=== PATIENT | male | born 1985 | race Caucasian/White ===

== ENCOUNTER 2024-07-19 21:14 | Inpatient (IN) | payer BC, SELFPAY ==
[2024-07-19 17:09] VITALS: BP 164/89
--- NOTE | 2024-07-19 17:28 | ED.GENMED ---
History of Present Illness
General
Chief Complaint: Crisis Evaluation
Source: patient
Exam Limitations: none
Time Seen by Provider: 07/19/24 17:28
Nursing documentation reviewed up to this point in time: agreed with
History of Present Illness
History of Present Illness:
The patient is a 38-year-old man with a past medical history of anxiety, depression and past suicidal attempts who comes in with feelings of hurting himself. Additionally, patient reports that he drinks alcohol every day and is experiencing nausea
and shakiness. Patient feels panicked. Patient reports he drank 2 cans of beer this morning. Patient denies history of withdrawal seizures but states that he has been experiencing visual hallucinations recently. Patient reports that his brother
recently from cancer few days ago. Patient denies headache, weakness and numbness. He denies fever and rash.
Past History
Past History
ED Past Medical History: Psychiatric and Other (ADHD)
ED Past Surgical History: Other (Hernia repair)
Social History
Tobacco: Smoker
Alcohol: Chronic alcoholic
Drug: Marijuana
Personal: Single
Living: with family
Employment: Other
Family History
Family History: Other
Review of Systems
Review of Systems
Allergies reviewed?: Yes
All Other Systems: ROS reviewed and negative except as documented in HPI and ROS
Constitutional: Reports sleep disturbance
EENT: Reports no symptoms
Respiratory: Reports no symptoms
Cardiac: Reports palpitations
ABD/GI: Reports nausea and anorexia
: Reports no symptoms
Musculoskeletal: Reports no symptoms
Skin: Reports no symptoms
Neurological: Reports no symptoms
Endocrine: Reports no symptoms
Hematologic/Lymphatic: Reports no symptoms
Psychiatric: Reports depression, anxiety, suicidal and hallucinations
Phy Exam
Physical Exam
Physical Exam:
Physical Exam
General: Patient appears flushed and anxious. Tremorous
Neck: supple. no meningeal signs. normal psoterior pharynx
Heart: Tachycardic
Lungs: no acute respiratory distress. clear bilaterally
Abdomen: normal bowel sounds. not tender. no CVAT
Neuro: alert and oriented. no focal neurological deficits
Skin: no rash
Psychiatric: well kept. interactive and cooperative
Extremities: no edema. no calf tenderness. negative homans. good distal pulses
Course
Orders/Labs/Results
Orders:
Orders
07/19/24 16:53
1:1 Observation - Suicide/ Violent Behavior As Directed
Crisis Consult Urgent
Reason for Consult: SI
07/19/24 18:14
Acetaminophen Urgent
Alcohol Urgent
Complete Blood Count/With Diff Urgent
Comprehensive Metabolic Panel Urgent
Fentanyl, Urine Urgent
Lipase Urgent
Urine Drug Abuse Screen Urgent
Date Specimen was Collected: 07/19/24
Time Specimen was Collected: 17:18
07/19/24 19:09
Lorazepam [Ativan] 1 mg IV NOW STA
07/19/24 19:10
Ondansetron Injectable [Zofran] 4 mg IV NOW STA
07/19/24 20:00
0.9% Sodium Chloride 1000 ml [Nss] 1,000 ml Mvi, Adult [Multivitamin] 10 ml Thiamine Injection 100 mg IV Wide Open mls/hr
07/19/24 20:04
Admit/Transfer Patient As Directed
Co-Sign Provider:
Level of Care: Inpatient admission
Assign to:: IMU- Intermediate Care
Physician / Group: elina shaffer
Diagnosis: etoh withdrawal/ delerium tremens
Reason for Hospitalization: etoh withdrawal/ delerium tremens
Expected length of stay greater than two midnights?: Yes
ELOS- Estimated Length of Stay in days: 5
I certify the patient meets the requirements for IP care: Yes
Code Status As Directed
Resuscitation Status: Full Code
07/19/24 20:07
PRN Pain Medication Management As Directed
May give lesser potent ordered pain med per pt: Yes
preference::
Protocol:: Medication orders for pain may be administered in a
manner that supports deferring to patient preference
when the pt is:
- Requesting an ordered lesser potent pain medication.
Least to most potent pain medications are defined
as: acetaminophen < NSAID < tramadol < opioids
(morphine, oxycodone, hydromorphone).
- Requesting a lesser dose of the same medication IF
ORDERED.
- Requesting a less intrusive route of administration
if both routes are prescribed by the provider (PO <
IV).
07/19/24 20:10
Nicotine [Nicoderm Transdermal] 21 mg TRANSDERM DAILY
Abnormal Lab Results
07/19/24
18:14
MCH 31.1 H pg
(27.0-31.0)
Immature Gran % 0.6 H %
(0-0.5)
Glucose 111 H mg/dl
(70-99)
AST 81 H U/L
(17-59)
ALT 116 H U/L
(0-50)
Acetaminophen < 10 L ug/ml
(10-30)
Ur Amphetamines Screen Positive H
(Negative)
U Marijuana (THC) Screen Positive H
(Negative)
07/19/24 18:14
07/19/24 18:14
Vital Signs
Initial and Last Documented VS:
Initial Vital Signs
Temp Pulse Resp BP Pulse Ox
98.4 F 107 16 164/89 98
07/19/24 17:09 07/19/24 17:09 07/19/24 17:09 07/19/24 17:09 07/19/24 17:09
Last Documented Vital Signs
Temp Pulse Resp BP Pulse Ox
98.4 F 97 20 144/96 98
07/19/24 17:09 07/19/24 19:59 07/19/24 19:59 07/19/24 19:59 07/19/24 19:59
MDM/Problems Addressed
Differential Diagnosis Includes:
Acute alcohol withdrawal, panic disorder, suicidal ideations
MDM/Problems Addressed:
Patient presents with acute suicide ideations, anxiety and tremor
Chronic conditions affecting care:
Chronic alcohol use
Chronic conditions affecting care: Psychiatric illness
Acute Exacerbation and/or Progression of Chronic Illness:
Patient may have acute exacerbation of alcohol withdrawal
*Pulse Oximetry
Patient hypoxic: no
*Critical Care Note
Total Time (30-74mins, 75-104mins- exclusive of procedures): Not Applicable
ED Attending Note
-
Portions of this chart may have been created with voice recognition software.� Occasional wrong word or��sound alike� substitutions may have occurred due to the inherent limitations of voice recognition software.
Discharge Plan
Departure
Patient Disposition: Admit
Date of Disposition: 07/19/24
Time of Disposition: 19:09
Admit to: Telemetry
Presentation/result/management discussed w/ accepting MD/DO: Hospitalist
Condition: Fair
Discharge Problem:
Alcohol withdrawal, Depression with suicidal ideation
Prescriptions:
No Action
Adderall
30 mg PO PRN PRN (Reason: to focus)
Patient Comments:
takes 5 mg at at time
Referrals:
UNKNOWN - PT DOES,NOT KNOW [Family Provider] -
Interventions
Interventions:
*Risk Screen - Suicide Last Done: 07/19/24 16:52
*General Assessment Last Done: 07/19/24 17:09
ED- Fall Risk Assessment Last Done: 07/19/24 18:15
*ED COVID-19 Vaccine History Last Done: 07/19/24 18:15
ED-Psychological Assessment Last Done: 07/19/24 18:15
Discharge Date and Time
Print Language: LITHUANIAN
[2024-07-19 18:15] VITALS: BMI 27.1
[2024-07-19 18:26] LABS: % Eosinophils 2.5 % (0-6); % Immature Granulocytes 0.6 % (0-0.5); % Lymphocytes 30.2 % (20.5-51.1); % Monocytes 6.4 % (1.7-9.3); % Neutrophils 59.3 % (42.2-75.2); Absolute Basophils 0.1 10^3/uL (0-0.2); Absolute Eosinophils 0.1 10^3/uL (0-0.7); Absolute Lymphocytes 1.5 10^3/uL (1.2-3.4); Absolute Monocytes 0.3 10^3/uL (0.1-0.6); Absolute Neutrophils 2.9 10^3/uL (1.4-6.5); Mean Corp Hgb Conc. 35.6 g/dL (33.0-37.0); Mean Corpuscular Hgb 31.1 pg (27.0-31.0); Mean Corpuscular Volume 87.4 fL (80.0-94.0); Mean Platelet Volume 8.9 fL (7.4-10.4); Nucleated Red Blood Cells % 0 % (-); Platelet Count 211 10^3/uL (130-400); Red Blood Cell Count 5.15 10^6/uL (4.70-6.10); Red Cell Dist. Width 12.5 % (11.5-14.5); White Blood Cell Count 4.8 10^3/uL (4.8-10.8)
[2024-07-19 18:38] LABS: Amphetamines Positive (Negative)
[2024-07-19 18:39] LABS: Barbiturates Negative (Negative); Benzodiazepines Negative (Negative); Buprenorphine Negative (Negative); Cocaine Negative (Negative); Marijuana Positive (Negative); Methadone Negative (Negative); Methamphetamines Negative (Negative); Opiates Negative (Negative); Phencyclidine Negative (Negative); Tricyclic Antidepressants Negative (Negative)
[2024-07-19 18:45] LABS: ALT (SGPT) 116 U/L (0-50); AST (SGOT) 81 U/L (17-59); Acetaminophen < 10 ug/ml (10-30); Albumin 4.7 g/dl (3.5-5.0); Alcohol 145 mg/dl; Alkaline Phosphatase 62 U/L (38-126); Blood Urea Nitrogen 19 mg/dl (9-20); Calcium 9.2 mg/dl (8.4-10.2); Carbon Dioxide 27 mmol/L (22-30); Chloride 100 mmol/L (98-107); Estimated Creatinine Clearance > 125 ml/min; Glucose 111 mg/dl (70-99); Lipase 169 U/L (23-300); Sodium 137 mmol/L (135-145); Total Bilirubin 0.8 mg/dl (0.2-1.3); Total Protein 7.7 g/dl (6.3-8.2); eGFR > 60.00
[2024-07-19 18:50] LABS: Potassium 4.5 mmol/L (3.5-5.1)
[2024-07-19 19:05] LABS: Fentanyl, Urine Negative (Negative)
--- NOTE | 2024-07-19 19:30 | HPS.HSE ---
Family Physician
-
Family Physician: NOT KNOW UNKNOWN - PT DOES
Chief Complaint
-
Suicidal, tremors, alcohol abuse
History of Present Illness
38-year-old male complaining of anxiety and depression along with suicidal thoughts of hurting himself. He reports that his brother from cancer a few days ago. He states he drinks heavily every day 1.5 L of vodka for the past 6 weeks
then prior 750 mL of vodka for the past 20 years. He reports his brother a few days ago he then started decreasing his alcohol intake and went down to 6 beers a day approximately 3 days ago. He states he had only had 2 cans of beer
this a.m. and is experiencing nausea with tremors along with visual hallucinations seeing colors. He feels very anxious and feels suicidal/unsafe at home. His girlfriend with whom he lives with is present with him. He states his friend gave him
BuSpar 2.5 mg of which he has had over the last 1-1/2 days. He denies fever, chills, rash, headache, chest pain, palpitations, shortness breath, cough, abdominal pain, nausea, vomiting, diarrhea, urinary symptoms. His past medical history of
alcoholism, active smoker, marijuana use, ADHD
Medical History
Past Medical History
Past Medical History: Reports Other
Additional Past Medical History:
alcoholism
active smoker
marijuana use,
ADHD
Past Surgical History: Reports Other
Additional Past Surgical History:
Hernia repair
Social History
Tobacco: Smoker (1 to 2 pack/day)
Alcohol: Daily (1.5 L/day recently 6 beers a day over the past 2 to 3 days)
Drug: Marijuana (Smokes 1 joint daily)
Personal: Single (Has girlfriend at bedside)
Living: With Family (Girlfriend)
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
Family History
Family History: Other (Brother cancer)
Allergies / Home Medications
Allergies reflects when Allergies were last updated in [employer].
Home Medications with original date entered in [employer]
Allergy/Medication List:
Allergies
Allergy/AdvReac Type Severity Reaction Status Date / Time
vancomycin Allergy Anaphylaxis Verified 07/19/24 17:16
Home Medications
Adderall 30 mg PO PRN PRN to focus 07/19/24
Review of Systems
-
History Source: Patient and Family (Girlfriend present in room)
A 12 point ROS was completed and negative except as noted: Yes
Constitutional: Reports Other (Anxious); Denies Fever, Fatigue or Chills
EENT: Reports Other (Difficulty maintaining eye contact when talking); Denies Sore Throat or Runny Nose
Respiratory: Denies Cough or Trouble Breathing
Cardiac: Denies Chest Pain, Diaphoresis, Palpitations or Syncope
Abdomen/GI: Denies Abdominal Pain, Nausea, Vomiting, Diarrhea, Constipated, Bloody Stools or Black Stools
: Denies Dysuria, Frequency, Flank Pain, Incontinence, Difficulty Voiding or Urgency
Musculoskeletal: Denies Joint Pain or Edema
Skin: Denies Itching or Rash
Neurological: Denies Dizzy, Headache or Weakness
Endocrine: Reports No Symptoms
Hematologic/Lymphatic: Reports No Symptoms
Psych: Reports Anxiety, Suicidal and Audio or Visual Hallucinations (Seeing colors)
Physical Exam
Vital Signs
Vital Signs
Temp Pulse Resp BP Pulse Ox
98.4 F 107 16 164/89 98
07/19/24 17:09 07/19/24 17:09 07/19/24 17:09 07/19/24 17:09 07/19/24 17:09
Physical Exam
General: Conversant (But difficulty maintaining eye contact); No Pain, Fever or Chills
HEENT: NormoCephalic, Anicteric, Moist mucous membranes, PERRLA, [place] Conjunctivae and No Ptosis
Respiratory: Clear; No Wheezes, Rales or Rhonchi
Cardiac: S1/S2 and Regular Rhythm; No Murmur, Rub, Gallop or Peripheral Edema
GI: Soft, Non Tender, Non Distended, Normal Bowel Sounds and No Hepatosplenomegaly
Rectal: Deferred by Provider
Genito-urinary: Deferred by me
Musculoskeletal: No Clubbing, No Cyanosis and No Edema
Skin: Warm and Dry; No Rash or Jaundice
Neuro: AO x 3, No Motor Deficits, Cranial Nerves Intact, No Sensory Deficits, Tremors (Hands) and Other (Anxious difficulty maintaining eye contact); No Slurred Speech, Facial Droop or Sedated
Psych: Agitated and Suicidal (Feels unsafe at home, lives with girlfriend who is currently in the room)
Laboratory Results
-
07/19/24 18:14
07/19/24 18:14
Laboratory Results
Total Bilirubin 0.8 mg/dl (0.2-1.3) 07/19/24 18:14
AST 81 U/L (17-59) H 07/19/24 18:14
ALT 116 U/L (0-50) H 07/19/24 18:14
Alkaline Phosphatase 62 U/L (38-126) 07/19/24 18:14
Lipase 169 U/L (23-300) 07/19/24 18:14
Data Reviewed
-
Lab Data: Labs Reviewed by me
Impression/Plan
-
Impression/plan:
Admit to IMU
Alcohol abuse with delirium tremens
Reports hallucinations, current tremors
Last drink 2 beers this a.m., EtOH 145
UDS positive for marijuana, amphetamines
-MSAs screen with protocol
-IV thiamine, IV folate
-Phenobarb taper
-Banana bag given in ER
-IV NSS 100 cc/h
Follow CBC, CMP
#Suicidal ideation
#Past history suicide with suicidal attempts
-Consult crisis
-One-to-one observation
#Transaminitis likely secondary to Alcohol abuse
AST 81, ALT 116, alk phos 62
-No prior IV drug use, history of tattoos entire body
#Nicotine abuse
#Marijuana use
-Smokes 1 to 2 pack/day and 1 joint daily
-Nicotine patch 21 mg
DVT prophylaxis
Subcu Lovenox
Full code
--- NOTE | 2024-07-19 19:38 | W.PN.UPDATE ---
Update Note
Progress Note Update
This note serves as an addendum to the H&P by manager battery LIZZETH Padmini GLEZ
HPI
38M HX anxiety, depression, ADHD and past suicidal attempts seen at ER
- pw feelings of hurting himself.
- he aslo reports that he drinks alcohol every day and is experiencing nausea and shakiness.
- feeling panicked.
- last ETOH: drank 2 cans of beer this morning.
- report experiencing visual hallucinations recently.
- social stressor: Brother recently from cancer few days ago
ROS:
- denies history of withdrawal seizures
- denies headache, weakness and numbness.
- denies fever and rash.
Reviewed VS: tachycardic Hypertensive 165/90
PE
Gen: flushed face, anxious and tremulous
HEENT: anicteric
Neck:
Lungs: clear bilaterally
Cor: tachycardic
Abdomen: soft , NT, NG, NRT
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 no focal neurological deficits
MS: no edema
Psych: well kept. interactive and cooperative
Laboratory Tests
07/19/24
18:14
WBC 4.8
Creatinine 0.8
eGFR > 60.00
AST 81 H
ALT 116 H
Lipase 169
Ur Amphetamines Screen Positive H
U Marijuana (THC) Screen Positive H
ASSESSMENT & PLAN
Suicidal ideation; feeling of hurting himself
Prior HX attempted suicide
HX HX anxiety, depression, ADHD
- agree wit 1 to 1
- Crisis consult
Hi risk for evolving acute ETOH WDS
POS autonomic hyperarousal signs ( tremors, tachycardia and hypetensive )
- last ETOH; this morning , 2 beers
- start on Phenobarb protocol
- Thiamine and Folate
- Psych consult
Suspect acute ETOH hepatitis
- trend LFts
- IVF
POS UDS for THC and Amphetamines
DVT Px: SQH
Full code
IMU
[2024-07-19] MEDS: MULTIVITAMIN 1011 MG IV (19:54)
[2024-07-19] MEDS: ZOFRAN 4 MG IV (19:54)
[2024-07-19] MEDS: MULTIVITAMIN 1011 ML IV (19:54)
[2024-07-19] MEDS: ATIVAN 1 MG IV (19:54)
[2024-07-19 19:59] VITALS: BP 144/96
[2024-07-19 22:00] VITALS: BP 143/96
[2024-07-19] MEDS: NICODERM TRANSDERMAL 21 MG TRANSDERM (22:00)
[2024-07-20] VITALS (16 sets, daily range): BP systolic 96–155; BP diastolic 42–109; BMI 27.5
[2024-07-20] MEDS: ATIVAN 1 MG IV ×2 (00:25→10:11)
[2024-07-20] MEDS: NSS (PRESERVATIVE FREE) 0.5 ML IV (00:25)
[2024-07-20 01:06] LABS: INR 0.98; PT 13.3 Sec (11.4-14.6)
[2024-07-20 01:07] LABS: APTT 28.4 Sec (23.4-35.0)
[2024-07-20 01:10] LABS: GGTP 287 U/L (15-73); Magnesium 1.9 mg/dl (1.6-2.3); Phosphorus 4.1 mg/dl (2.5-4.5)
[2024-07-20 01:18] LABS: B-Hydroxybutyrate 0.08 mmol/L (0.02-0.27)
[2024-07-20] MEDS: THIAMINE INJECTION 200 MG IV ×4 (01:23→23:18)
[2024-07-20] MEDS: NSS 1000 IV ×3 (01:24→18:54)
[2024-07-20] MEDS: PHENOBARBITAL 104 MG IV (01:25)
--- NOTE | 2024-07-20 01:40 | PTCARENOTE ---
Patient received in room 3362 from ED via stretcher. The patient transferred himself to the ICU bed. AAOX3. Patient is calm, pleasant, with flat affect at this time. Plan of care for the shift and unit orientation reviewed with the patient. Sinus
rhythm on the monitor with HR in the 80s. Coarse breath sounds. SpO2 at 95% on room air. Pt has a wet occasional cough. +BS. Declines need to void at this time. The patient verbalized weight loss and difficulty eating as of late. Pt has a linear 4
inch length healing cut on his left forearm. Pt stated that he fell a few days ago and must have cut himself. Labs drawn and sent. Scheduled medication administered. 1:1 suicide observation continued. Call brian is within reach.
[2024-07-20 04:19] LABS: % Basophils 1.1 % (0-2); % Eosinophils 2.4 % (0-6); % Immature Granulocytes 0.4 % (0-0.5); % Lymphocytes 32.9 % (20.5-51.1); % Monocytes 9.8 % (1.7-9.3); % Neutrophils 53.4 % (42.2-75.2); Absolute Basophils 0.1 10^3/uL (0-0.2); Absolute Eosinophils 0.1 10^3/uL (0-0.7); Absolute Lymphocytes 1.5 10^3/uL (1.2-3.4); Absolute Monocytes 0.4 10^3/uL (0.1-0.6); Absolute Neutrophils 2.4 10^3/uL (1.4-6.5); Hematocrit 42.3 % (39.0-52.0); Hemoglobin 14.9 g/dL (13.0-18.0); Mean Corp Hgb Conc. 35.2 g/dL (33.0-37.0); Mean Corpuscular Volume 87.9 fL (80.0-94.0); Mean Platelet Volume 9.8 fL (7.4-10.4); Nucleated Red Blood Cells % 0 % (-); Platelet Count 211 10^3/uL (130-400); Red Blood Cell Count 4.81 10^6/uL (4.70-6.10); Red Cell Dist. Width 12.4 % (11.5-14.5); White Blood Cell Count 4.5 10^3/uL (4.8-10.8)
[2024-07-20 04:46] LABS: HDL Cholesterol 42 mg/dl; Total Cholesterol 201 mg/dl (50-199)
--- NOTE | 2024-07-20 04:49 | PTCARENOTE ---
Patient reassessed. MSAS 4. Pt's resting but easily arouses to verbal commands. No changes from previous assessment.1:1 observation continued.
[2024-07-20 05:13] LABS: Triglyceride > 400 mg/dl (10-149)
[2024-07-20 05:32] LABS: LDL Cholesterol, Direct 41 mg/dl
[2024-07-20 05:58] LABS: ALT (SGPT) 97 U/L (0-50); AST (SGOT) 77 U/L (17-59); Albumin 4.2 g/dl (3.5-5.0); Alkaline Phosphatase 55 U/L (38-126); Blood Urea Nitrogen 17 mg/dl (9-20); Calcium 8.5 mg/dl (8.4-10.2); Carbon Dioxide 25 mmol/L (22-30); Chloride 101 mmol/L (98-107); Estimated Creatinine Clearance > 125 ml/min; Glucose 86 mg/dl (70-99); Magnesium 1.8 mg/dl (1.6-2.3); Potassium 4.4 mmol/L (3.5-5.1); Sodium 136 mmol/L (135-145); Total Bilirubin 1.4 mg/dl (0.2-1.3); eGFR > 60.00
--- NOTE | 2024-07-20 07:20 | PTCARENOTE ---
Vital signs downloaded from previous shift, , can not verify accuracies
[2024-07-20] MEDS: FOLVITE 1 MG PO (07:45)
[2024-07-20] MEDS: NICODERM TRANSDERMAL 21 MG TRANSDERM (07:45)
[2024-07-20] MEDS: PHENOBARBITAL 97.5 MG IV ×3 (07:47→21:45)
--- NOTE | 2024-07-20 08:06 | PTCARENOTE ---
Pt received sleeping, 1:1 observation maintained for suicidal thoughts, pt awoken easily. Pt calm, oriented to name, place, month and year. Following commands. Pt went back to sleep easily. HR SR, BP 149/95. IV NSS infusing at 100 mg/hr. No tremors
noted at this time, ordered phenobarbital dose given. MSAS presently 0. O2 sat=94-96% on R/A. Lobes very sl coarse throughout. +BSs. Urinal at bedside. Safe environment maintained.
[2024-07-20] MEDS: ATIVAN 1 MG PO (09:08)
--- NOTE | 2024-07-20 09:10 | PTCARENOTE ---
Pt's MSAS now 7, pt cooperative, sl anxious, tremors noted. Pt feels sl nauseous with water. NSS iv maintained. Hospitalist, Dr Jiang, in to assess pt, and also updated that pt's diastolic BP has been sl elevated since admission, even at rest,
90-109. Ativan 1 mg po given for MSAS. Warm blanket also applied for comfort. Nicotine patch also was applied this am, pt states he is feeling the need for a cigarette also.
--- NOTE | 2024-07-20 09:57 | PTCARENOTE ---
Pt assisted to bathroom, sl unstable on feet. Pt able to void and had a BM. Pt assisted back to bed, still cooperative, sl anxious, + hand tremors. Safe environment maintained.
--- NOTE | 2024-07-20 13:54 | PTCARENOTE ---
Pt sleeping in bed, opens eyes to name, and follows simple commands, no tremors at this time, then falls back to sleep. 1:1 staff in room with pt. for suicide precautions.
--- NOTE | 2024-07-20 14:08 | CM ---
Patient with Hx anxiety, depression, ADHD and past suicidal attempts. POS UDS for THC and Amphetamines. Room air. Receiving PO & IV Ativan prn, IV Phenobarb, IVF. Suicide precautions - 1:1 Observation. MSAS per nursing. Psych Consult pending.
Met with patient who was sleeping but aroused easily to voice, drowsy with eyes mostly closed during assessment.
The patient states that he lives in a 2 story [address] with his roommate Fritz.
He was independent in ADLs and ambulation.
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
The patient has no DME or prior VN.
Unable to obtain PCP or Pharmacy information- falling back asleep.
As per MD notes, patient reports his brother a few days ago.
CM Consult: Substance Abuse
CM will reattempt when patient not actively withdrawing and more alert, and after seen by Psych.
Plan TBD.
[2024-07-20] MEDS: NORVASC 2.5 MG PO (16:00)
--- NOTE | 2024-07-20 16:27 | W.PN.HOSP.TC ---
Addendum entered and electronically signed by Sun Bianchi MD 07/20/24 19:21:
I saw and evaluated the patient independently. I reviewed the resident�s note and agree with findings and plan as documented by Dr. Jiang.
GENERAL: well developed, well nourished, male in no apparent distress
HEENT: NC/AT
HEART: regular rate and rhythm, +S1, +S2
LUNGS : clear to auscultation bilaterally
ABDOM: soft, nontender, nondistended, + bowel sounds
EXT: no cyanosis, clubbing, or edema
NEUROLOGIC: slight tremors
PSYCH: affect appears flat--no further SI
Alcohol Withdrawal Syndrome with Delirium Tremens --had hallucinations/tremors--cont phenobarb taper--cont 1:1 (had plan to shoot himself but gave part of his gun to someone else so he wouldn't do that)--last drink 07/19/24 at noon--positive UDS as
well--doesn't seem interested in rehab--cont MSAS with ativan as needed--cont thiamine/folate--follow K and mag--apprec psych
Suicidal Ideation with Plan- One to One Sitter/ Safe Trays/Precautions--apprec Psych
Transaminitis Likely Secondary to Alcohol Abuse- Follow CMP
Essential Hypertension- Likely secondary to alcohol withdrawal- Start Norvasc
DVT proph
code status--FULL CODE
Original Note:
Today's Communication/Plan
-
.
Assessment / Plan
Assessment / Plan
1. Alcohol Withdrawal Syndrome with Delirium Tremens
- Patient reported hallucinations previously, currently tremulous
- Last drink was on 07/19/24 in AM
- EtOH 145 on arrival
- UDS positive for marijuana, amphetamines
- Serial MSAS: varied from 0-8 today
- Phenobarbital taper
- PRN Ativan
- IV Thiamine and Folate supplementation
- Follow CBC/CMP
2. Suicidal Ideation with Plan
- One to One Sitter/ Safe Trays/Precautions
- Psych Consult pending
- D/w CM
3. Transaminitis Likely Secondary to Alcohol Abuse
- Follow CMP
4. Hypertension
- Likely secondary to alcohol withdrawal
- Start Norvasc
Anticipated Discharge: 24 - 48 hours
Subjective/Interval History
-
Date of Service: July 20, 2024
Patient seen and examined while sleeping in ICU bed. Reviewed his history with him. Briefly, patient notes that he had been drinking 750 mL of vodka every day for approximately 20 years. The patient occasionally will have periods where he stops
drinking cold turkey. Patient notes that over the past 6 weeks his alcohol intake has increased to approximately 1.5 L of vodka daily. However his his brother recently unfortunately, leading him to decrease his drinking. Patient notes
that he was drinking approximately 6 beers a day in this timeframe. Patient states that his plan was to fly out to take care of his brothers affairs. However while at the airport patient started to become extremely anxious and jittery. The
patient decided to return home where he also felt that he was overtly anxious and had thoughts of suicidality with plan. Patient notes that his plan was to use a gun, however, he gave his gun to a friend so that he would not be able to. Over this
time the patient endorses nausea, tremors, visual hallucinations.
Upon seeing the patient this morning, the patient feels a little bit better since admission. Patient however notes that he still anxious, still has some tremors although improved, will have periodic suicidal thoughts, however denies having a plan
at this time.
Objective Data
-
Labs:
Laboratory Results
07/20/24 07/20/24
04:04 05:05
Sodium Cancelled 136
Potassium Cancelled 4.4
Chloride Cancelled 101
Carbon Dioxide Cancelled 25
BUN Cancelled 17
Creatinine Cancelled 0.7
Glucose Cancelled 86
Calcium Cancelled 8.5
Total Bilirubin Cancelled 1.4 H
AST Cancelled 77 H
ALT Cancelled 97 H
Alkaline Phosphatase Cancelled 55
Vital Signs:
Vital Signs
Temp Pulse Resp BP Pulse Ox
97.8 F 74 15 145/96 95
07/20/24 12:00 07/20/24 15:00 07/20/24 15:00 07/20/24 14:00 07/20/24 15:00
I&O
07/19/24 07/20/24 07/21/24
06:59 06:59 06:59
Intake Total 400 / 500 1000 / 1000
Output Total 650 / 650
Balance 400 / 500 350 / 350
Review of Systems
-
History Source: Patient
Constitutional: Reports No Symptoms
Respiratory: Reports No Symptoms
Cardiac: Reports No Symptoms
Abdomen/GI: Reports No Symptoms
Neuro: Reports Tremors
Psych: Reports Depressed and Anxious
Physical Exam
-
General: Well Developed and Well Nourished
HEENT: Normocephalic, Atraumatic, Moist Mucous Membranes and Other (sclera anicteric)
Respiratory: Clear to Auscultation
Cardiac: Regular Rhythm and S1/S2
GI: Soft, Nontender, Nondistended and Normal Bowel Sounds
Musculoskeletal: No Clubbing, No Cyanosis and No Edema
Skin: Warm
Neuro: Awake, Alert, Tremors and Other (no asterixis)
Psych: Other (notes periods of suicidal thoughts, however no plan at moment; flat affect. )
Data Reviewed
-
Labs: Labs Reviewed by me
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
[2024-07-20] MEDS: LOVENOX 40 MG SC (17:20)
--- NOTE | 2024-07-20 18:34 | PTCARENOTE ---
Pt ate 80% of his dinner, no nausea safe tray given. Assisted to bathroom, voided 700 yellow urine. Pt seen by Dr Salmeron, 1600 MSAS=4, and presently being checked q 4 hr. Pt remains with 1:1 observation.
--- NOTE | 2024-07-20 20:00 | PTCARENOTE ---
Received patient AAOx3, following commands, denying pain. MSAS 1. Normal sinus, 80s-90s, BP 150s/90s, normothermic. 95% on room air, lung sounds coarse throughout. Positive bowel sounds, abdomen round, soft. Voiding in bathroom. Skin intact. Left
forearm IV patent, WNL, NSS gtt ongoing. Suicidal 1:1 ongoing.
[2024-07-21] VITALS (12 sets, daily range): BP systolic 128–166; BP diastolic 85–108; BMI 28.3
[2024-07-21 00:05] LABS: Urine Albumin Negative (Neg - Trace); Urine Bilirubin Negative (Negative); Urine Character Clear (Clear); Urine Color Yellow; Urine Glucose Negative (Negative); Urine Ketone Negative (Negative); Urine Leukocyte Negative (Negative); Urine Nitrite Negative (Negative); Urine Occult Blood Negative (Negative); Urine Urobilinogen Negative (Neg - 1+)
--- NOTE | 2024-07-21 00:58 | PTCARENOTE ---
UA sent, patient assessment unchanged from previous, 1:1 ongoing.
[2024-07-21 06:11] LABS: % Basophils 0.9 % (0-2); % Eosinophils 4.7 % (0-6); % Immature Granulocytes 0.2 % (0-0.5); % Lymphocytes 28.5 % (20.5-51.1); % Monocytes 8.9 % (1.7-9.3); % Neutrophils 56.8 % (42.2-75.2); Absolute Eosinophils 0.2 10^3/uL (0-0.7); Absolute Lymphocytes 1.3 10^3/uL (1.2-3.4); Absolute Monocytes 0.4 10^3/uL (0.1-0.6); Absolute Neutrophils 2.6 10^3/uL (1.4-6.5); Hematocrit 41.3 % (39.0-52.0); Hemoglobin 14.8 g/dL (13.0-18.0); Mean Corp Hgb Conc. 35.8 g/dL (33.0-37.0); Mean Corpuscular Volume 86.6 fL (80.0-94.0); Mean Platelet Volume 9.2 fL (7.4-10.4); Nucleated Red Blood Cells % 0 % (-); Platelet Count 142 10^3/uL (130-400); Red Blood Cell Count 4.77 10^6/uL (4.70-6.10); Red Cell Dist. Width 11.9 % (11.5-14.5); White Blood Cell Count 4.5 10^3/uL (4.8-10.8)
[2024-07-21 06:19] LABS: ALT (SGPT) 95 U/L (0-50); AST (SGOT) 75 U/L (17-59); Albumin 4.2 g/dl (3.5-5.0); Alkaline Phosphatase 61 U/L (38-126); Blood Urea Nitrogen 9 mg/dl (9-20); Calcium 8.5 mg/dl (8.4-10.2); Carbon Dioxide 22 mmol/L (22-30); Chloride 103 mmol/L (98-107); Estimated Creatinine Clearance > 125 ml/min; Glucose 90 mg/dl (70-99); Potassium 3.9 mmol/L (3.5-5.1); Sodium 135 mmol/L (135-145); Total Bilirubin 2.3 mg/dl (0.2-1.3); eGFR > 60.00
[2024-07-21 08:09] LABS: Magnesium 2.1 mg/dl (1.6-2.3)
[2024-07-21] MEDS: NICODERM TRANSDERMAL 21 MG TRANSDERM (08:23)
[2024-07-21] MEDS: THIAMINE INJECTION 200 MG IV ×3 (08:26→23:20)
[2024-07-21] MEDS: FOLVITE 1 MG PO (08:26)
[2024-07-21] MEDS: PHENOBARBITAL 97.5 MG IV ×3 (08:26→21:22)
[2024-07-21] MEDS: NORVASC 2.5 MG PO (08:27)
[2024-07-21] MEDS: NSS 1000 IV (08:38)
--- NOTE | 2024-07-21 09:52 | PTCARENOTE ---
Pt received awake, AOx3 pleasant and cooperative. 1:1 observation maintained for prior suicidal thoughts. Pt states he no longer has suicidal thoughts at this time. HR SR, BP elevated on tele, ordered medications administered per worklist. IV NSS
infusing at 100 ml/hr. Mild tremors noted at this time, ordered phenobarbital dose given. MSAS score 3. O2 sat 94-96% on R/A. Lungs dim throughout, slightly coarse anteriorly. Plan of care discussed with patient and Drs. Yoo and Apolinar. Pt asking
for higher dose nicotine patch. Safe environment maintained.
--- NOTE | 2024-07-21 11:37 | W.PN.UPDATE ---
Update Note
Progress Note Update
Pt seen, fairly alert/awake, calm, cooperative, with no agitation, no signs of psychosis. Pt denies any depression or SI. He reports taking an occasional Adderall to help with focus, reports he was prescribed Concerta as a child. No recent
outpatient prescriptions/medications per pt.
Imp: Alcohol Use d/o, severe; alcohol withdrawal. Mood appears stable
Rec: continue current management; encourage pt to consider alcohol rehab
stopped 1:1 supervision- not needed
Outpatient eval/ treatment for possible ADHD after discharge
--- NOTE | 2024-07-21 11:45 | W.PN.HOSP.TC ---
Addendum entered and electronically signed by Philly Yoo MD 07/21/24 14:08:
A/P:
# Alcohol Withdrawal with Delirium Tremens
UDS on admission positive with amphetamine, marijuana, also alcohol level at 145
Had hallucinations/tremors
cont phenobarb taper, MSAS with Ativan as needed
Can observe off 1:1 per psych
# Suicidal Ideation
Pt had plan to shoot himself but gave part of his gun to someone else so he wouldn't do that
Possible inpatient psych for dispo
# Transaminitis Likely Secondary to Alcohol Abuse
Follow CMP
# Essential Hypertension, likely secondary to alcohol withdrawal
Started low dose Norvasc
DVT proph: Lovenox SQ
code status--FULL CODE
Original Note:
Today's Communication/Plan
-
Transfer to telemetry; d/c IVF; monitor BP, serial MSAS; d/c 1-1
Assessment / Plan
Assessment / Plan
1. Alcohol Withdrawal Syndrome with Delirium Tremens
- Tremulousness improved
- Last drink was on 07/19/24 in AM; EtOH 145 on arrival
- UDS positive for marijuana, amphetamines
- Serial MSAS: varied from 0-4 over past 24 hours
- Phenobarbital taper: on dose
- PRN Ativan (required one dose last night)
- IV Thiamine and Folate supplementation
- Follow CBC/CMP
2. Suicidal Ideation with Plan
- Patient seen by Dr. Salmeron/Frank: discontinue 1-1 sitter
- D/w CM
- [facility] when appropriate
3. Transaminitis/Hyperbilirubinemia Likely Secondary to Alcohol Abuse
- Follow CMP
4. Hypertension
- Likely secondary to alcohol withdrawal
- Norvasc started yesterday; high BP to be expected, continue to monitor
- Discontinue IVF
5. Nicotine Dependence
- Patient on 21 mg patch; discussed this is the maximum dosage
- Offered gum for cravings if needed
Anticipated Discharge: 24 - 48 hours
Subjective/Interval History
-
Date of Service: July 21, 2024
Patient seen and examined while sitting up in bed and eating breakfast. Patient states that he feels less anxious than he did yesterday, though still feels groggy, and notes that when he has used nicotine patches in the past he has 'put up to 8
patches on his body'. Patient notes tremors have also decreased. Patient denies any thoughts of harming himself or others today.
Objective Data
-
Labs:
Laboratory Results
07/21/24
05:42
WBC 4.5 L
Hgb 14.8
Hct 41.3
Plt Count 142 D
Sodium 135
Potassium 3.9
Chloride 103
Carbon Dioxide 22
BUN 9
Creatinine 0.6 L
Glucose 90
Calcium 8.5
Total Bilirubin 2.3 H D
AST 75 H
ALT 95 H
Alkaline Phosphatase 61
Vital Signs:
Vital Signs
Temp Pulse Resp BP Pulse Ox
98.3 F 78 15 148/102 96
07/21/24 08:06 07/21/24 09:41 07/21/24 09:41 07/21/24 09:41 07/21/24 08:00
I&O
07/20/24 07/21/24 07/22/24
06:59 06:59 06:59
Intake Total 400 / 500 2980 / 3080 500 / 500
Output Total 1350 / 1350
Balance 400 / 500 1630 / 1730 500 / 500
Review of Systems
-
History Source: Patient
Constitutional: Reports Fatigue
EENT: Reports No Symptoms Reported
Respiratory: Reports No Symptoms
Cardiac: Reports No Symptoms
Abdomen/GI: Reports No Symptoms
Musculoskeletal: Reports No Symptoms
Neuro: Reports Tremors (improved)
Physical Exam
-
General: Well Developed and Well Nourished
HEENT: Normocephalic, Atraumatic and Moist Mucous Membranes
Respiratory: Non Labored Respirations and Other (bronchial breath sounds secondary to smoking history)
Cardiac: Regular Rhythm
GI: Soft and Nontender
Musculoskeletal: No Clubbing, No Cyanosis and No Edema
Skin: Warm and Dry
Neuro: Awake, Alert, Tremors (mild improved) and Other (negative asterixis)
Psych: Other (denies suicidal ideation. )
Data Reviewed
-
Labs: Labs Reviewed by me
--- NOTE | 2024-07-21 12:41 | PTCARENOTE ---
Pt reassessed, plan discussed with attending, Resident, and psych MD. Pt ok for tele, 1:1 dc'd per psych, ok to shower, IVF dc'd. Pt assisted to safely shower and now ambulating in room with portable tele pack on. Call brian in reach, pt verbalized
understanding.
--- NOTE | 2024-07-21 13:55 | CM ---
CM following re: discharge planning.
Reviewed pt's chart, met with pt.
Psychiatry evaluation noted.
Pt reports he has been drinking since the age of 16, described himself as an alcoholic. Pt reports he lives with a room mate who almost never there. Pt reports he has no children, has unpleasant relationship with parents. Pt reports he has specific
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 Pt expressed his interest to meet with [facility] team even pt stated he will not be able to go to inpatient rehab due to his job locations
challenges but he really wants to stop drinking. Pt stated he will definitely looking for outpatient D&A related services, AA meetings/sponsor and [facility] A referral to [facility] made, spoke to BRIGITTE Shane and he will meet with the pt today. CM has a long
conversation/meeting with the pt, behavioral modification techniques discussed. Pt stated he will start with repairing his relationship with his parents. Emotional support with reassurance offered and provided.
D/C plan: home with [facility] to follow.
CM will follow with discharge plan updates as hospitalization progresses
[2024-07-21] MEDS: LOVENOX 40 MG SC (17:36)
--- NOTE | 2024-07-21 18:09 | PTCARENOTE ---
Received pt from ICU via WC; accompanied by ICU staff. Pt AAO x3, sl anxious; LINDSEY well, transferred to bed, no c/o weakness/dizziness. VSS. Placed on telemetry:NSR. On room air- pulse ox 95%, no SOB noted. Abd large, soft, non-tender, pt to be
on regular diet. Pt DTV; stated he will void in BR; has urinal at bedside. Afebrile; warm and dry. Oriented to 4East. Currently resting in bed, no c/o. Will continue to monitor.
[2024-07-22 03:03] VITALS: BP 144/93
[2024-07-22 07:35] VITALS: BP 151/97
[2024-07-22] MEDS: FOLVITE 1 MG PO (08:35)
[2024-07-22] MEDS: LUMINAL 64.8 MG PO (08:35)
[2024-07-22] MEDS: NORVASC 2.5 MG PO (08:35)
[2024-07-22] MEDS: NICODERM TRANSDERMAL 21 MG TRANSDERM (08:35)
[2024-07-22] MEDS: THIAMINE INJECTION 200 MG IV (08:36)
[2024-07-22 08:41] LABS: % Eosinophils 4.8 % (0-6); % Immature Granulocytes 0.4 % (0-0.5); % Lymphocytes 27.8 % (20.5-51.1); % Monocytes 8.7 % (1.7-9.3); % Neutrophils 57.3 % (42.2-75.2); Absolute Basophils 0.1 10^3/uL (0-0.2); Absolute Eosinophils 0.2 10^3/uL (0-0.7); Absolute Lymphocytes 1.4 10^3/uL (1.2-3.4); Absolute Monocytes 0.4 10^3/uL (0.1-0.6); Absolute Neutrophils 2.8 10^3/uL (1.4-6.5); Hemoglobin 15.5 g/dL (13.0-18.0); Mean Corpuscular Hgb 31.3 pg (27.0-31.0); Mean Corpuscular Volume 86.9 fL (80.0-94.0); Mean Platelet Volume 9.7 fL (7.4-10.4); Nucleated Red Blood Cells % 0 % (-); Platelet Count 146 10^3/uL (130-400); Red Blood Cell Count 4.95 10^6/uL (4.70-6.10)
[2024-07-22 09:15] LABS: ALT (SGPT) 114 U/L (0-50); AST (SGOT) 89 U/L (17-59); Albumin 4.6 g/dl (3.5-5.0); Alkaline Phosphatase 65 U/L (38-126); Blood Urea Nitrogen 9 mg/dl (9-20); Carbon Dioxide 25 mmol/L (22-30); Chloride 99 mmol/L (98-107); Estimated Creatinine Clearance > 125 ml/min; Glucose 83 mg/dl (70-99); Magnesium 2.2 mg/dl (1.6-2.3); Potassium 3.7 mmol/L (3.5-5.1); Total Bilirubin 1.5 mg/dl (0.2-1.3); Total Protein 7.6 g/dl (6.3-8.2); eGFR > 60.00
[2024-07-22 09:27] LABS: Sodium 133 mmol/L (135-145)
--- NOTE | 2024-07-22 10:52 | W.PN.UPDATE ---
Update Note
Progress Note Update
Patient seen, chart reviewed, discussed with staff. Mr. Carrasco tells me he feels much better. Denies any current w/d symptoms. He also denies any SI or depressive symptoms, He relates his prior mood to how terrible he felt during withdrawal. He tells
me this was the worst w/d he has experienced. He relates this to how heavy he drank for about a month. Typically, he would slowly increase drinking and when it became heavy, he would stop. He is not interested in discussing antidepressant treatment
for anxiety at this time although he admits he deals with a lot of stressors. He will consider as he progresses through his sobriety.
Impression/Recommendation: Alcohol Use Disorder, severe; acute withdrawal - Continue with MSAS and Pheno taper. OP treatment resources explored. Declines need for IP. Agree he is appropriate for OP treatment at this time.
[2024-07-22 11:04] VITALS: BP 151/90
--- NOTE | 2024-07-22 11:33 | W.PN.HOSP.TC ---
Addendum entered and electronically signed by Philly Yoo MD 07/23/24 13:25:
Total DC time 35 minutes
Addendum entered and electronically signed by Philly Yoo MD 07/22/24 12:31:
A/P:
# Alcohol Withdrawal with Delirium Tremens, resolved
UDS on admission positive with amphetamine, marijuana, also alcohol level at 145 on admission
hallucination and tremor have resolved
cont phenobarb taper, MSAS with Ativan as needed
off 1:1 per psych
Patient now declined inpatient psych and requesting to be discharged home
# Suicidal Ideation on admission
Pt had plan to shoot himself but gave part of his gun to someone else so he wouldn't do that
He stated that he does not possess a shotgun anymore
No further suicidal/homicidal ideation.
Patient now declined inpatient psych and requesting to be discharged home
# Transaminitis likely Secondary to Alcohol Abuse
Follow CMP outpt, result to PCP
# Essential Hypertension, likely secondary to alcohol withdrawal
Started low dose Norvasc which he can continue going forward
DVT proph: Lovenox SQ
code status--FULL CODE
Original Note:
Today's Communication/Plan
-
Clinically stable. Discharge to home. Outpatient treatment resources and [facility] visit.
Assessment / Plan
Assessment / Plan
1. Alcohol Withdrawal Syndrome with Delirium Tremens
- Tremulousness improved; no tremors on exam this morning
- Last drink was on 07/19/24 in AM; EtOH 145 on arrival
- UDS positive for marijuana, amphetamines
- Serial MSAS: varied from 0-2 over past 24 hours; continues to improve
- Phenobarbital taper; completed all 6 doses of 96mg step
- PRN Ativan (required one dose on night of admission, did not require any additional doses)
- IV Thiamine and Folate supplementation
2. Suicidal Ideation with Plan
- Patient seen by Dr. Salmeron/Caro Marie Depalma: see notes
- D/w CM
- [facility] prior to d/c
- Patient denies suicidal ideation or depressive symptoms. Attributes his mood to withdrawal symptoms. Patient does not want inpatient rehab, outpatient resources explored with CM/Psych. Patient owns a shotgun but states that it is in possession of
his friend for safety. Patient advised that he should seek care home care and to return to hospital if he has any thoughts of harming himself or others.
3. Transaminitis/Hyperbilirubinemia Likely Secondary to Alcohol Abuse
- Transaminitis stable, mild; likely secondary to recent alcohol use
- T-bili improved from yesterday
4. Hypertension
- Likely secondary to alcohol withdrawal
- Norvasc started yesterday; high BP to be expected, continue to monitor
- Discontinue IVF
- SBPs range from 120-160 overnight. Likely 2/2 alcohol withdrawal symptoms. This should be followed up by PCP.
5. Nicotine Dependence
- Patient on 21 mg patch; discussed this is the maximum dosage
- Offered gum for cravings if needed
Anticipated Discharge: Today
Subjective/Interval History
-
Date of Service: July 22, 2024
Patient seen and examined while sitting up and resting comfortably in bed. Patient states that he feels a lot better today than in past days. Patient says that his anxiety is less, he feels much less groggy, he is eating well, has no tremors, and
denies any acute complaints today.
Objective Data
-
Labs:
Laboratory Results
07/22/24
06:56
WBC 5.0
Hgb 15.5
Hct 43.0
Plt Count 146
Sodium 133 L
Potassium 3.7
Chloride 99
Carbon Dioxide 25
BUN 9
Creatinine 0.7
Glucose 83
Calcium 9.0
Total Bilirubin 1.5 H
AST 89 H
ALT 114 H
Alkaline Phosphatase 65
Vital Signs:
Vital Signs
Temp Pulse Resp BP Pulse Ox
97.9 F 77 16 151/97 95
07/22/24 07:35 07/22/24 08:35 07/22/24 07:35 07/22/24 08:35 07/22/24 09:50
I&O
07/21/24 07/22/24 07/23/24
06:59 06:59 06:59
Intake Total 2980 / 3080 1200 / 1200 240 / 240
Output Total 1350 / 1350
Balance 1630 / 1730 1200 / 1200 240 / 240
Review of Systems
-
History Source: Patient
Constitutional: Reports No Symptoms
Respiratory: Reports No Symptoms
Cardiac: Reports No Symptoms
Abdomen/GI: Reports No Symptoms
Neuro: Reports No Symptoms
Physical Exam
-
General: Well Developed, Well Nourished, No Apparent Distress and Other (Patient is conversant and appears to be in a more pleasant mood. )
HEENT: Normocephalic, Atraumatic and Anicteric
Respiratory: Other (bronchial breath sounds secondary to smoking)
Cardiac: Regular Rhythm and S1/S2
GI: Soft and Nontender
Musculoskeletal: No Clubbing, No Cyanosis and No Edema
Skin: Warm
Neuro: Awake and Alert; Negative Tremors
Psych: Calm
Data Reviewed
-
Labs: Labs Reviewed by me and Discussed with Patient
[2024-07-22 11:55] VITALS: BP 151/90
--- NOTE | 2024-07-22 13:45 | W.DCSUMMARY ---
Documented by User: Jeanmarie Jiang DO, Resident 07/22/24 14:12
Discharge Summary
Discharge Data
Date of Admission: 07/19/24
Date of Discharge: 07/22/24
-
Pending Results: Yes
Additional Pending Results:
Liver Function Tests; patient given a script to be done in one week following discharge and followed up with PCP.
Hospital Course
Spike Carrasco is a 38-year-old male with an extensive alcohol use history. The patient notes that he had been drinking approximately 750 mL of vodka every day for approximately 20 years. The patient will then occasionally have periods where he
stops drinking 'cold turkey'. More recently, the patient notes that over the past 6 weeks his alcohol intake has increased to approximately 1.5 L of vodka daily. However, upon the passing of his brother recently the patient started to drink less.
Since his brother's passing, the patient endorses drinking approximately 6 beers per day. The patient states that his plan was to fly out to take care of his brothers affairs. However, while at the airport the patient started to become extremely
anxious and jittery. The patient decided to return home where he ended up feeling overtly anxious and had thoughts of suicidality. The patient admitted to a plan, to use his shotgun to harm himself. The patient ended up giving his gun to a friend
to ensure his safety and decided to come to [facility].
In the emergency department the patient was hypertensive, tachycardic, and it had been approximately 12 hours since his last drink. The patient was admitted to the ICU that evening for acute alcohol withdrawal and impending delerium tremens. The
plan was treat with intravenous fluids, electrolyte supplementation, and a phenobarbital taper.
Acute Alcohol Withdrawal with Impending Delirium Tremens
The patient was given MSAS checks every 4 hours, with the highest MSAS score being 8 the day after admission. The patient's MSAS scores ranged from 0-2 on the final 24 hours of his admission. The patient was prescribed as needed Ativan for
withdrawal symptoms, but only required one dose on the first night of his admission. He did not require any more doses on the final 48 hours of admission. Additionally, the patient was supplemented with IV Thiamine and Folate.
Alcohol Use Disorder
The patient exhibited mildly elevated transaminases throughout his admission. Additionally, his bilirubin was rising early in admission, but then started to improve by the day of discharge. It is recommended that the patient follow up with his
primary care provider and was given a script for Liver Function Tests to be done in one week. Patient was also given information to the [facility] in case he was unable to meet with this primary care provider, who
he states he has not seen in years.
Suicidal Ideation with Plan
Upon admission, the patient endorsed being suicidal and having a plan to harm himself using his shotgun. The patient also endorsed giving his shotgun to his friend in order to ensure his own safety. During admission, patient was seen by Dr. Marie,
Dr. Salmeron and Caro Amin for psychiatric recommendations. Although the patient did not want to continue to receive care on an inpatient basis, the patient had interest in continue sobriety and using outpatient resources. Additionally, the patient
also denied suicidal ideation throughout the course of his stay, and attributed both his overt anxiety and feelings of self harm to being in active withdrawal.
Hypertension
During his admission, the patient's blood pressures were moderately elevated, with systolic blood pressures ranging from 120 - 160. It is likely that this is secondary to alcohol and nicotine withdrawal. However, while in the hospital, patient was
given 5mg Norvasc daily. The patient was given a script to continue this medication in the interim, and to follow up with his primary care provider for outpatient management of his elevated blood pressures.
Discharge Plan
-
Patient Disposition: Home (Routine Discharge)
Discharge Diagnosis/Procedures: Acute Alcohol Withdrawal Syndrome
Alcohol Use Disorder
Condition: Fair
Diet: Regular
Activity: As tolerated
Referrals:
UNKNOWN - PT DOES,NOT KNOW [Family Provider] -
Prescriptions:
New
amlodipine 2.5 mg Tablet
2.5 mg PO DAILY 30 Days Qty: 30 0RF
Continued
Adderall
30 mg PO PRN PRN (Reason: to focus)
Patient Comments:
takes 5 mg at at time
Discharge Orders:
Discharge Patient (As Directed); Ordered 07/22/24
Ordered By: Jeanmarie Jiang
Discharge Date and Time
Discharge Date/Time: 07/22/24 14:15
Print Language: GUAMANIAN

Documented by User: Philly Yoo MD 07/23/24 13:25
Discharge Summary
Discharge Data
Date of Admission: 07/19/24
Date of Discharge: 07/22/24
Hospital Course
Spike Carrasco is a 38-year-old male with an extensive alcohol use history. The patient drinks approximately 750 mL of vodka every day for approximately 20 years, with occasional periods of 'cold turkey'. More recently over the past 6 weeks, his
alcohol intake has increased to approximately 1.5 L of vodka daily. His brother passed recently, and he has been drinking less.
The patient also had a plan of killing himself with a shotgun. The patient ended up giving his gun to a friend to ensure his safety and decided to come to [facility].
He presented with alcohol withdrawal and suicidality thought.
In the hospital, he was treated with phenobarbital taper with MSAS / needed Ativan for his alcohol withdrawal/delirium tremens.
His LFT was noted to be elevated and he can check repeat LFT outpatient following discharge.
As for his suicidal ideation, he was seen by psych, and was initially placed on one-to-one which was subsequently discontinued. He was initially recommended inpatient psych hospitalization, but he later declined that.
Since he no longer was suicidal, he was cleared to return home
He was noted to be hypertensive on the hospital, and Norvasc was added. He can continue Norvasc 2.5 mg daily and follow-up with his PCP for blood pressure monitoring.
Discharge Plan
-
Patient Disposition: Home (Routine Discharge)
Discharge Diagnosis/Procedures: Acute Alcohol Withdrawal Syndrome
Alcohol Use Disorder
Condition: Fair
Diet: Regular
Activity: As tolerated
Referrals:
UNKNOWN - PT DOES,NOT KNOW [Family Provider] -
Prescriptions:
New
amlodipine 2.5 mg Tablet
2.5 mg PO DAILY 30 Days Qty: 30 0RF
Continued
Adderall
30 mg PO PRN PRN (Reason: to focus)
Patient Comments:
takes 5 mg at at time
Discharge Orders:
Discharge Patient (As Directed); Ordered 07/22/24
Ordered By: Jeanmarie Jiang
Discharge Date and Time
Discharge Date/Time: 07/22/24 14:15
Print Language: GUAMANIAN
--- NOTE | 2024-07-22 16:03 | CM ---
MD entered for discharge.
Spoke with Veronika Shane. Veronika gave pt information on out pt recourses. Pt declined inpatient therapy.
Spoke with pt he said he will follow up with Veronika after dc.
Offered Vn he declined need.
Pt said he was taking an Uber home.
PLAN Home no needs
== END 2024-07-22 14:15 | disposition home or self-care (01) | DRG 897 ==
LOC: 4 EAST ACU 21:14
PROVIDERS: Clinical Nurse Specialist Family Health; Emergency Medicine; ADMITTING PHYSICIAN Internal Medicine; ATTENDING PHYSICIAN Internal Medicine; CONSULT PHYSICIAN Psychiatry & Neurology Psychiatry; EMERGENCY PHYSICIAN Emergency Medicine
DX: F10.231 Alcohol dependence with withdrawal delirium (principal); R45.851 Suicidal ideations; F33.9 Major depressive disorder, recurrent, unspecified; F41.9 Anxiety disorder, unspecified; F90.9 Attention-deficit hyperactivity disorder, unspecified type; R44.1 Visual hallucinations; F17.213 Nicotine dependence, cigarettes, with withdrawal; F12.90 Cannabis use, unspecified, uncomplicated; Y90.6 Blood alcohol level of 120-199 mg/100 ml; E80.6 Other disorders of bilirubin metabolism; R74.01 Elevation of levels of liver transaminase levels; R11.0 Nausea; K70.10 Alcoholic hepatitis without ascites; F34.1 Dysthymic disorder; I10 Essential (primary) hypertension; Z63.4 Disappearance and death of family member; Z91.51 Personal history of suicidal behavior; Z88.1 Allergy status to other antibiotic agents
CPT/HCPCS: 80053; 80061; 80143; 80306; 80307; 81003; 82010; 82077; 82977; 83690; 83721; 83735; 84100; 85025; 85610; 85730; 87070; 96365; 96366; 96375; 99285; 99406